=== PATIENT | female | born 1945 | race Caucasian/White ===

== ENCOUNTER 2018-11-26 21:28 | Emergency (ER) | payer MEDICARE, BC ==
[~2018-11-26] VITALS: Ht 162.6 cm; Wt 63.5 kg
[2018-11-26] MEDS ORDERED: LISINOPRIL20 MG PO (21:40)
[2018-11-26 22:48] VITALS: BP 168/99
== END 2018-11-26 22:48 | disposition home or self-care (01) ==
LOC: M.ERS 21:28
DX: S63.502A Unspecified sprain of left wrist, initial encounter (principal); W18.39XA Other fall on same level, initial encounter; Y93.02 Activity, running; Y92.89 Other specified places as the place of occurrence of the external cause; Y99.8 Other external cause status

== ENCOUNTER → 2020-12-15 | Outpatient (CLI) | payer MEDICARE, BC ==
[~2020-12-15] MED LIST: LISINOPRIL20 MG PO
== END ==
LOC: M.MRI 07:07
PROVIDERS: ATTEND Orthopaedic Surgery
DX: M51.36 Other intervertebral disc degeneration, lumbar region (principal); M47.816 Spondylosis without myelopathy or radiculopathy, lumbar region; M48.061 Spinal stenosis, lumbar region without neurogenic claudication; M25.78 Osteophyte, vertebrae